=== PATIENT | female | born 1965 | race Caucasian/White ===

== ENCOUNTER → 2021-04-03 | Outpatient (CLI) | payer MEDICARE, MEDICAID ==
--- NOTE | 2021-04-03 10:46 | KCIC ---
EXAMINATION: Magnetic resonance imaging (MRI) of the cervical spine without contrast 04/03/2021 8:30 AM HISTORY: Neck pain with right shoulder pain. Right-sided radiculopathy TECHNIQUE: Multiplanar multi-weighted MRI of the cervical spine was performed without intravenous con trast using the standard cervical spine protocol. Contrast information: None administered COMPARISON: None available. FINDINGS: There is minimal retrolisthesis of C3 on C4 and C5 on C6. Vertebral bodies demonstrate normal signal intensity on all sequences. No acute fracture is identified; however, if trauma is suspected, a CT s can would be a more sensitive examination for fractures. The craniocervical junction is normal. The visualized portions of the skull base and the posterior fossa are normal. The spinal cord demonstra jarred normal signal intensity on all sequences. Mild disc desiccation at multiple levels of the cervic al spine. No soft tissue abnormality is identified. Normal signal voids are present in the vertebral arteries. C2-C3: The disk is normal in configuration. There is no facet arthropathy. There is no uncovertebral joint disease. There is no neuroforaminal stenosis. There is no spinal canal stenosis. C3-C4: There is a disc bulge. There is no facet arthropathy. There is no uncovertebral joint disease . There is mild right neuroforaminal stenosis. There is no spinal canal stenosis. C4-C5: Mild disc bulge. There is no facet arthropathy. There is no uncovertebral joint disease. Ther e is no neuroforaminal stenosis. There is no spinal canal stenosis. C5-C6: Mild disc bulge. There is mild facet arthropathy. There is no uncovertebral joint disease. Th ere is no neuroforaminal stenosis. There is no spinal canal stenosis. C6-C7: Mild disc bulges central annular fissure. There is no facet arthropathy. There is no uncovert ebral joint disease. There is no neuroforaminal stenosis. There is no spinal canal stenosis. C7-T1: The disk is normal in configuration. There is no facet arthropathy. There is no uncovertebral joint disease. There is no neuroforaminal stenosis. There is no spinal canal stenosis. IMPRESSION: Mild degenerative changes of the cervical spine as described in detail above. Electronically signed by: Omaira Lee MD (04/03/2021 10:43 AM) [id number]
== END ==
LOC: KCIC MRI 08:15
PROVIDERS: ATTEND Nurse Practitioner Family
DX: M47.22 Other spondylosis with radiculopathy, cervical region (principal); M25.511 Pain in right shoulder
CPT/HCPCS: 72141